=== PATIENT | male | born 1930 | race Caucasian/White ===

== ENCOUNTER 2017-10-17 09:06 | Emergency (ER) | payer MEDICARE ==
[~2017-10-17] VITALS: Ht 180.3 cm; Wt 80.3 kg
[~2017-10-17 09:06] MED LIST: AMI25T PO; COR3.125T PO; FINA5TAB11 PO; FLO0.4C PO; INSU100V12 SQ; KEN0.1O TP; LEVO50TA8 PO; LISI-642 PO; NITR0.4T48 SL; ROSU40TA PO; TOBR5DRO57 LEFTEYE
[2017-10-17 09:48] LABS: BASOPHILS % (AUTO) 0.4 % (0-1); EOSINOPHILS # (AUTO) 0.8 X10'3 (0-0.9); EOSINOPHILS % (AUTO) 8.4 % (0-6); HEMATOCRIT 33.4 % (42.0-52.0); HEMOGLOBIN 11.2 g/dl (14.0-17.9); MEAN CORPUSCULAR HEMOGLOBIN 29.3 PG (27.0-31.0); MEAN CORPUSCULAR HGB CONC 33.5 % (33.0-36.5); MEAN CORPUSCULAR VOLUME 87.4 FL (78-98); MEAN PLATELET VOLUME 7.5 FL (7.4-10.4); MONOCYTES # (AUTO) 0.7 X10'3 (0-0.9); MONOCYTES % (AUTO) 7.7 % (2-12); NEUTROPHILS % (AUTO) 73.5 % (42-75); PLATELET COUNT 364 X10'3 (140-440); RED BLOOD COUNT 3.82 X10'6 (4.70-6.10); RED CELL DISTRIBUTION WIDTH 15.9 % (11.5-14.5); WHITE BLOOD COUNT 9.5 X10'3 (4.5-11.0)
[2017-10-17 09:56] LABS: ALBUMIN 3.5 G/DL (3.4-5.0); ANION GAP 9 (8-16); BLOOD UREA NITROGEN 58 MG/DL (7-18); BUN/CREATININE RATIO 19.3 (5.4-32.0); CALCIUM 8.3 MG/DL (8.5-10.1); CHLORIDE 107 MMOL/L (99-107); CREATININE 3.01 MG/DL (0.60-1.10); GLUCOSE 107 MG/DL (70-104); POTASSIUM 5.2 MMOL/L (3.5-5.1); SODIUM 140 MMOL/L (135-145); TOTAL CARBON DIOXIDE 23.9 MMOL/L (24-32); eGFR 20 ML/MIN
[2017-10-17 10:10] LABS: CLARITY,URINE TURBID (Clear); COLOR,URINE BROWN (Yellow); GLUCOSE, URINE NEGATIVE (Neg); KETONES,URINE TRACE mg/dl (Neg); LEUKOCYTE ESTERASE ,URINE SMALL (Neg); NITRITES, URINE POSITIVE (Neg); OCCULT BLOOD,URINE LARGE (Neg); PH,URINE 6.5 (4.8-8.0); PROTEIN,URINE >=300 mg/dl (Neg)
[2017-10-17 10:20] LABS: UA COLLECTION TYPE FOLEY CATH
[2017-10-17 10:24] LABS: AMORPHOUS URATES 1+; BACTERIA,URINE 1+ /HPF (Neg); COARSE GRANULAR CAST 0-3 /LPF (NEGATIVE); HYALINE CASTS 0-3 /LPF (NEGATIVE); MUCUS STRANDS FEW /LPF (Neg); RBC,URINE TNTC /HPF (0-2); SQUAMOUS EPITHELIAL CELL,UR FEW /LPF (FEW); WBC,URINE 20-30 /HPF (0-4)
[2017-10-17] MEDS ORDERED: DOXY100C43 PO (10:59)
[2017-10-17 11:07] VITALS: BP 148/83
== END 2017-10-17 11:14 | disposition home or self-care (01) ==
LOC: ER 09:07
DX: N39.0 Urinary tract infection, site not specified (principal); R33.9 Retention of urine, unspecified; N18.4 Chronic kidney disease, stage 4 (severe); I25.10 Atherosclerotic heart disease of native coronary artery without angina pectoris; E11.22 Type 2 diabetes mellitus with diabetic chronic kidney disease; I25.2 Old myocardial infarction; Z79.4 Long term (current) use of insulin; Z79.899 Other long term (current) drug therapy
CPT/HCPCS: 36415; 51702; 80048; 81001; 85025; 87088; 99285; A4315

== ENCOUNTER 2018-01-08 09:37 | Inpatient (IN) | payer MEDICARE ==
[~2018-01-08] VITALS: Ht 175.3 cm; Wt 84.0 kg
[2018-01-08 10:10] LABS: BASOPHILS % (AUTO) 0 % (0-1); EOSINOPHILS # (AUTO) 0.2 X10'3 (0-0.9); EOSINOPHILS % (AUTO) 1.7 % (0-6); HEMATOCRIT 35.1 % (42.0-52.0); HEMOGLOBIN 11.5 g/dl (14.0-17.9); LYMPHOCYTES # (AUTO) 0.2 X10'3 (1.1-4.8); LYMPHOCYTES % (AUTO) 1.5 % (21-51); MEAN CORPUSCULAR HEMOGLOBIN 28.3 PG (27.0-31.0); MEAN CORPUSCULAR HGB CONC 32.6 % (33.0-36.5); MEAN CORPUSCULAR VOLUME 86.6 FL (78-98); MEAN PLATELET VOLUME 7.4 FL (7.4-10.4); MONOCYTES # (AUTO) 0.3 X10'3 (0-0.9); MONOCYTES % (AUTO) 2.3 % (2-12); NEUTROPHILS # (AUTO) 10.8 X10'3 (1.8-7.7); NEUTROPHILS % (AUTO) 94.5 % (42-75); PLATELET COUNT 390 X10'3 (140-440); RED BLOOD COUNT 4.06 X10'6 (4.70-6.10); WHITE BLOOD COUNT 11.4 X10'3 (4.5-11.0)
[2018-01-08 10:21] LABS: ANISOCYTOSIS 1+; PLATELET ESTIMATE NORMAL; TOTAL CELLS COUNTED 100
[2018-01-08 10:25] LABS: ALANINE AMINOTRANSFERASE 21 U/L (12-78); ALBUMIN 3.3 G/DL (3.4-5.0); ALBUMIN/GLOBULIN RATIO 0.7 (1.1-1.5); ALKALINE PHOSPHATASE 56 IU/L (46-116); ANION GAP 12 (8-16); ASPARTATE AMINO TRANSFERASE 14 U/L (10-37); BILIRUBIN,TOTAL 0.4 MG/DL (0.1-1.0); BLOOD UREA NITROGEN 76 MG/DL (7-18); BUN/CREATININE RATIO 23.3 (5.4-32.0); CALCIUM 8.2 MG/DL (8.5-10.1); CHLORIDE 105 MMOL/L (99-107); CREATININE 3.26 MG/DL (0.60-1.10); GLUCOSE 126 MG/DL (70-104); SODIUM 136 MMOL/L (135-145); TOTAL CARBON DIOXIDE 19.5 MMOL/L (24-32); TOTAL PROTEIN 7.8 G/DL (6.4-8.2); eGFR 18 ML/MIN
[2018-01-08] MEDS ORDERED: normal saline 1000ML IV soln IVB ONE (10:50)
[2018-01-08 11:13] LABS: CLARITY,URINE CLOUDY (Clear); COLOR,URINE BROWN (Yellow); PH,URINE 6.5 (4.8-8.0)
[2018-01-08 11:21] LABS: UA COLLECTION TYPE FOLEY CATH
[2018-01-08 11:23] LABS: BACTERIA,URINE FEW /HPF (Neg); MUCUS STRANDS NONE SEEN /LPF (Neg); RBC,URINE TNTC /HPF (0-2); SQUAMOUS EPITHELIAL CELL,UR FEW /LPF (FEW)
[2018-01-08] MEDS ORDERED: CefTRIAXone 2gm/D5W 50ml 50 ML IV ONE (11:50)
[2018-01-08] MEDS ORDERED: normal saline 1000ML IV soln IV ONE (11:50)
[2018-01-08] MEDS ORDERED: GABA-530 PO (12:21)
[2018-01-08] MEDS ORDERED: CLOP75TA35 PO (12:21)
[2018-01-08] MEDS ORDERED: ALLO100T15 (12:21)
[2018-01-08] MEDS ORDERED: AMPI500C65 PO (12:21)
[2018-01-08] MEDS ORDERED: ondansetron/PF 4mg/2ml inj IV PRN (13:10)
[2018-01-08] MEDS ORDERED: mag hydrox/Alum hydrox/simeth 30ml oral suspension PO PRN (13:10)
[2018-01-08] MEDS ORDERED: magnesium hydroxide 30ml (MOM) UD suspension PO PRN (13:10)
[2018-01-08] MEDS: normal saline 1000ml 1,000 ML IV SCH ×2 (13:10→18:29)
[2018-01-08] MEDS ORDERED: magnesium 4gm in 100ml NS 100 ML IV PRN (13:10)
[2018-01-08] MEDS ORDERED: magnesium Cl slow-release 64mg tablet PO PRN (13:10)
[2018-01-08] MEDS ORDERED: potassium Cl 40MEQ/NS 500ml 500 ML IV PRN ×2 (13:10)
[2018-01-08] MEDS ORDERED: magnesium 1gm/100ml D5W IVPB 100 ML IV PRN (13:10)
[2018-01-08] MEDS ORDERED: potassium Cl 20 mEq SR tablet PO PRN ×2 (13:10)
[2018-01-08] MEDS ORDERED: acetaminophen 325mg tablet PO PRN ×2 (13:10)
[2018-01-08] MEDS ORDERED: HYDROcodone/acetaminophen 5mg/325mg tablet PO PRN ×2 (13:10→17:45)
[2018-01-08 13:30] VITALS: BP 116/45
[2018-01-08] MEDS ORDERED: glucagon, human recombinant 1mg kit SUBCUT PRN (16:45)
[2018-01-08] MEDS ORDERED: MESSAGE TO PHARMACY PO ONE (16:45)
[2018-01-08] MEDS ORDERED: dextrose ORAL solution 15 GM/59 ML bottle PO PRN ×2 (16:45)
[2018-01-08] MEDS ORDERED: dextrose 50%-water 50ml dispensing syringe IV PRN ×2 (16:45)
[2018-01-08 17:48] LABS: INR 1.1 INR; PARTIAL THROMBOPLASTIN TIME 36 SECONDS (22-32); PROTHROMBIN TIME 11.4 SECONDS (9.0-12.0)
[2018-01-08 18:30] VITALS: BP 120/45
[2018-01-08] MEDS: heparin, porcine 5000 units/ml vial SQ SCH (20:11)
[2018-01-08] MEDS: carVEDilol 3.125mg tablet PO SCH (20:11)
[2018-01-08] MEDS: Melatonin 3mg tablet PO SCH (20:11)
[2018-01-08] MEDS: gabapentin 100mg capsule PO SCH (20:11)
[2018-01-08] MEDS: nystatin 15 GM powder TP SCH (20:12)
[2018-01-08] MEDS ORDERED: temazepam 15mg capsule PO PRN (21:00)
[2018-01-08] MEDS ORDERED: insulin glargine (Lantus) pen - multi-dose SQ SCH (21:00)
[2018-01-08] MEDS: insulin glargine (Lantus) pen - multi-dose SQ SCH (21:00)
[2018-01-09] VITALS (9 sets, daily range): BP systolic 93–127; BP diastolic 45–85
[2018-01-09] MEDS: normal saline 1000ml 1,000 ML IV SCH ×2 (05:01→15:02)
[2018-01-09 05:32] LABS: ALANINE AMINOTRANSFERASE 9 U/L (12-78); ALBUMIN 2.2 G/DL (3.4-5.0); ALBUMIN/GLOBULIN RATIO 0.6 (1.1-1.5); ALKALINE PHOSPHATASE 47 IU/L (46-116); ANION GAP 10 (8-16); ASPARTATE AMINO TRANSFERASE 10 U/L (10-37); BILIRUBIN,TOTAL 0.2 MG/DL (0.1-1.0); BLOOD UREA NITROGEN 76 MG/DL (7-18); BUN/CREATININE RATIO 23.6 (5.4-32.0); CALCIUM 7.3 MG/DL (8.5-10.1); CHLORIDE 110 MMOL/L (99-107); CREATININE 3.22 MG/DL (0.60-1.10); GLUCOSE 92 MG/DL (70-104); MAGNESIUM 1.5 MG/DL (1.5-2.4); SODIUM 137 MMOL/L (135-145); TOTAL CARBON DIOXIDE 16.9 MMOL/L (24-32); TOTAL PROTEIN 5.7 G/DL (6.4-8.2); eGFR 18 ML/MIN
[2018-01-09 05:55] LABS: BASOPHILS % (AUTO) 0.4 % (0-1); EOSINOPHILS # (AUTO) 0.3 X10'3 (0-0.9); EOSINOPHILS % (AUTO) 4.4 % (0-6); HEMATOCRIT 24.7 % (42.0-52.0); HEMOGLOBIN 8.1 g/dl (14.0-17.9); LYMPHOCYTES # (AUTO) 0.3 X10'3 (1.1-4.8); LYMPHOCYTES % (AUTO) 4.6 % (21-51); MEAN CORPUSCULAR HEMOGLOBIN 28.7 PG (27.0-31.0); MEAN CORPUSCULAR HGB CONC 32.9 % (33.0-36.5); MEAN CORPUSCULAR VOLUME 87.2 FL (78-98); MEAN PLATELET VOLUME 8.1 FL (7.4-10.4); MONOCYTES # (AUTO) 0.4 X10'3 (0-0.9); MONOCYTES % (AUTO) 5.7 % (2-12); NEUTROPHILS # (AUTO) 5.7 X10'3 (1.8-7.7); NEUTROPHILS % (AUTO) 84.9 % (42-75); PLATELET COUNT 263 X10'3 (140-440); RED BLOOD COUNT 2.83 X10'6 (4.70-6.10); RED CELL DISTRIBUTION WIDTH 17.3 % (11.5-14.5); WHITE BLOOD COUNT 6.7 X10'3 (4.5-11.0)
[2018-01-09] MEDS: heparin, porcine 5000 units/ml vial SQ SCH (08:00)
[2018-01-09] MEDS: lisinopril 5mg tablet PO SCH (08:00)
[2018-01-09] MEDS: K and/or MAG REPLACEMENT MC SCH (08:00)
[2018-01-09] MEDS: carVEDilol 3.125mg tablet PO SCH ×2 (08:00→19:26)
[2018-01-09] MEDS: CefTRIAXone/D5W-Rocephin 1gm 50 ML IV SCH (08:46)
[2018-01-09] MEDS: atorvastatin 20mg tablet PO SCH (08:47)
[2018-01-09] MEDS: tamsulosin 0.4mg capsule PO SCH (08:47)
[2018-01-09] MEDS: clopidogrel 75mg tablet PO SCH (08:47)
[2018-01-09] MEDS: finasteride 5mg tablet PO SCH (08:48)
[2018-01-09] MEDS: nystatin 15 GM powder TP SCH ×3 (08:48→20:55)
[2018-01-09] MEDS ORDERED: nitroGLYCERIN 0.4mg SUBLingual tab SL ONE (11:42)
[2018-01-09] MEDS: nitroGLYCERIN 0.4mg SUBLingual tab SL PRN ×2 (11:52→12:23)
[2018-01-09] MEDS: nitroGLYCERIN 0.4mg/hour patch TD SCH (14:17)
[2018-01-09] MEDS: Melatonin 3mg tablet PO SCH (20:54)
[2018-01-09] MEDS: gabapentin 100mg capsule PO SCH (20:55)
[2018-01-09] MEDS: HYDROcodone/acetaminophen 10/325mg tab PO PRN (20:55)
[2018-01-09] MEDS: insulin glargine (Lantus) pen - multi-dose SQ SCH (21:00)
[2018-01-10] VITALS: BP 111/56
[2018-01-10 01:30] VITALS: BP 120/60
[2018-01-10 04:57] LABS: BASOPHILS % (AUTO) 0.4 % (0-1); EOSINOPHILS # (AUTO) 0.6 X10'3 (0-0.9); EOSINOPHILS % (AUTO) 8.8 % (0-6); HEMATOCRIT 32.6 % (42.0-52.0); HEMOGLOBIN 10.9 g/dl (14.0-17.9); LYMPHOCYTES # (AUTO) 0.6 X10'3 (1.1-4.8); LYMPHOCYTES % (AUTO) 7.8 % (21-51); MEAN CORPUSCULAR HEMOGLOBIN 29.2 PG (27.0-31.0); MEAN CORPUSCULAR HGB CONC 33.3 % (33.0-36.5); MEAN CORPUSCULAR VOLUME 87.8 FL (78-98); MEAN PLATELET VOLUME 7.9 FL (7.4-10.4); MONOCYTES # (AUTO) 0.5 X10'3 (0-0.9); MONOCYTES % (AUTO) 6.6 % (2-12); NEUTROPHILS # (AUTO) 5.5 X10'3 (1.8-7.7); NEUTROPHILS % (AUTO) 76.4 % (42-75); PLATELET COUNT 302 X10'3 (140-440); RED BLOOD COUNT 3.71 X10'6 (4.70-6.10); RED CELL DISTRIBUTION WIDTH 17.4 % (11.5-14.5); WHITE BLOOD COUNT 7.2 X10'3 (4.5-11.0)
[2018-01-10] MEDS: normal saline 1000ml 1,000 ML IV SCH ×2 (05:16→17:02)
[2018-01-10 05:19] LABS: ALANINE AMINOTRANSFERASE 9 U/L (12-78); ALBUMIN 2.3 G/DL (3.4-5.0); ALBUMIN/GLOBULIN RATIO 0.6 (1.1-1.5); ALKALINE PHOSPHATASE 44 IU/L (46-116); ANION GAP 11 (8-16); ASPARTATE AMINO TRANSFERASE 26 U/L (10-37); BILIRUBIN,TOTAL 0.2 MG/DL (0.1-1.0); BLOOD UREA NITROGEN 67 MG/DL (7-18); BUN/CREATININE RATIO 21.6 (5.4-32.0); CALCIUM 7.4 MG/DL (8.5-10.1); CHLORIDE 111 MMOL/L (99-107); GLUCOSE 126 MG/DL (70-104); MAGNESIUM 1.6 MG/DL (1.5-2.4); POTASSIUM 5.5 MMOL/L (3.5-5.1); SODIUM 140 MMOL/L (135-145); TOTAL CARBON DIOXIDE 17.6 MMOL/L (24-32); TOTAL PROTEIN 6.4 G/DL (6.4-8.2); eGFR 19 ML/MIN
[2018-01-10] MEDS: K and/or MAG REPLACEMENT MC SCH (06:51)
[2018-01-10 07:00] VITALS: BP 135/61
[2018-01-10] MEDS: CefTRIAXone/D5W-Rocephin 1gm 50 ML IV SCH (07:29)
[2018-01-10] MEDS: tamsulosin 0.4mg capsule PO SCH (07:30)
[2018-01-10] MEDS: finasteride 5mg tablet PO SCH (07:30)
[2018-01-10] MEDS: carVEDilol 3.125mg tablet PO SCH ×2 (07:30→20:05)
[2018-01-10] MEDS: clopidogrel 75mg tablet PO SCH (07:30)
[2018-01-10] MEDS: atorvastatin 20mg tablet PO SCH (07:30)
[2018-01-10] MEDS: nitroGLYCERIN 0.4mg/hour patch TD SCH (07:30)
[2018-01-10] MEDS: HYDROcodone/acetaminophen 10/325mg tab PO PRN (07:30)
[2018-01-10] MEDS: lisinopril 5mg tablet PO SCH (07:30)
[2018-01-10] MEDS: nystatin 15 GM powder TP SCH ×3 (07:30→21:58)
[2018-01-10 10:49] VITALS: BP 136/62
[2018-01-10] MEDS ORDERED: sodium polystyrene sulfonate 15gm/60ml oral suspension PO ONE (16:10)
[2018-01-10] MEDS ORDERED: sodium bicarbonate (8.4%) 1 mEq/ml syringe IV ONE (16:10)
[2018-01-10] MEDS: sodium bicarbonate (8.4%) inj. 50 MEQ in sodium chloride 0.45% 1,000 ML IV SCH (18:59)
[2018-01-10] MEDS: insulin Lispro (HumaLOG) vial - multi-dose SQ SCH (19:02)
[2018-01-10 19:52] VITALS: BP 112/57
[2018-01-10] MEDS: lactobacillus rhamnosus 10,000 MMU CELLS/CAPSULE PO SCH (20:05)
[2018-01-10] MEDS: Melatonin 3mg tablet PO SCH (21:56)
[2018-01-10] MEDS: gabapentin 100mg capsule PO SCH (21:56)
[2018-01-10] MEDS: insulin glargine (Lantus) pen - multi-dose SQ SCH (22:46)
[2018-01-10 23:30] VITALS: BP 119/65
[2018-01-11] MEDS: HYDROcodone/acetaminophen 10/325mg tab PO PRN ×2 (00:31→15:07)
[2018-01-11] MEDS: normal saline 1000ml 1,000 ML IV SCH ×2 (01:10→05:26)
[2018-01-11] MEDS ORDERED: ipratropium/albuterol 3ml nebule NEB PRN (02:10)
[2018-01-11] MEDS: sodium bicarbonate (8.4%) inj. 50 MEQ in sodium chloride 0.45% 1,000 ML IV SCH (03:50)
[2018-01-11] MEDS: nitroGLYCERIN 0.4mg SUBLingual tab SL PRN ×2 (04:01→15:07)
[2018-01-11 04:04] VITALS: BP 140/64
[2018-01-11 04:15] VITALS: BP 119/57
[2018-01-11 04:18] LABS: BASOPHILS % (AUTO) 0.2 % (0-1); EOSINOPHILS % (AUTO) 0 % (0-6); HEMATOCRIT 36.1 % (42.0-52.0); HEMOGLOBIN 11.7 g/dl (14.0-17.9); LYMPHOCYTES # (AUTO) 0.6 X10'3 (1.1-4.8); LYMPHOCYTES % (AUTO) 4.7 % (21-51); MEAN CORPUSCULAR HEMOGLOBIN 28.7 PG (27.0-31.0); MEAN CORPUSCULAR HGB CONC 32.5 % (33.0-36.5); MEAN CORPUSCULAR VOLUME 88.4 FL (78-98); MEAN PLATELET VOLUME 7.8 FL (7.4-10.4); MONOCYTES # (AUTO) 0.8 X10'3 (0-0.9); MONOCYTES % (AUTO) 5.9 % (2-12); NEUTROPHILS # (AUTO) 11.8 X10'3 (1.8-7.7); NEUTROPHILS % (AUTO) 89.2 % (42-75); PLATELET COUNT 389 X10'3 (140-440); RED BLOOD COUNT 4.08 X10'6 (4.70-6.10); RED CELL DISTRIBUTION WIDTH 17.7 % (11.5-14.5); WHITE BLOOD COUNT 13.3 X10'3 (4.5-11.0)
[2018-01-11 04:39] LABS: ALANINE AMINOTRANSFERASE 20 U/L (12-78); ALBUMIN 2.7 G/DL (3.4-5.0); ALBUMIN/GLOBULIN RATIO 0.6 (1.1-1.5); ALKALINE PHOSPHATASE 70 IU/L (46-116); ANION GAP 12 (8-16); ASPARTATE AMINO TRANSFERASE 22 U/L (10-37); BILIRUBIN,TOTAL 0.3 MG/DL (0.1-1.0); BLOOD UREA NITROGEN 62 MG/DL (7-18); BUN/CREATININE RATIO 20.4 (5.4-32.0); CALCIUM 7.8 MG/DL (8.5-10.1); CHLORIDE 108 MMOL/L (99-107); CREATININE 3.04 MG/DL (0.60-1.10); GLUCOSE 233 MG/DL (70-104); MAGNESIUM 1.9 MG/DL (1.5-2.4); POTASSIUM 5.9 MMOL/L (3.5-5.1); SODIUM 138 MMOL/L (135-145); TOTAL CARBON DIOXIDE 17.6 MMOL/L (24-32); TOTAL PROTEIN 7.4 G/DL (6.4-8.2); eGFR 20 ML/MIN
[2018-01-11] MEDS ORDERED: furosemide 40mg/4ml inj IV ONE (05:10)
[2018-01-11 05:27] VITALS: BP 125/67
[2018-01-11 07:00] VITALS: BP 126/62
[2018-01-11] MEDS: ipratropium/albuterol 3ml nebule NEB SCH ×5 (07:48→23:30)
[2018-01-11] MEDS: K and/or MAG REPLACEMENT MC SCH (08:00)
[2018-01-11] MEDS ORDERED: dextrose 50%-water 50ml dispensing syringe IV STA (08:34)
[2018-01-11] MEDS ORDERED: furosemide 40mg/4ml inj IV STA (08:34)
[2018-01-11] MEDS ORDERED: sodium bicarbonate (8.4%) 1 mEq/ml syringe IV STA (08:34)
[2018-01-11] MEDS ORDERED: albuterol 2.5 MG/3 ML nebule NEB STA (08:34)
[2018-01-11] MEDS ORDERED: insulin regular, human 10 units/0.1 ml syringe IV STA (08:34)
[2018-01-11] MEDS ORDERED: sodium polystyrene sulfonate 15gm/60ml oral suspension PO STA (08:34)
[2018-01-11] MEDS ORDERED: sodium bicarbonate (8.4%) inj. 50 MEQ in dextrose 5%-water 250 ML IV ONE ×2 (09:05→13:20)
[2018-01-11] MEDS: nystatin 15 GM powder TP SCH ×3 (09:14→19:32)
[2018-01-11] MEDS: nitroGLYCERIN 0.4mg/hour patch TD SCH (09:16)
[2018-01-11] MEDS: carVEDilol 3.125mg tablet PO SCH ×2 (09:16→19:33)
[2018-01-11] MEDS: atorvastatin 20mg tablet PO SCH (09:17)
[2018-01-11] MEDS: tamsulosin 0.4mg capsule PO SCH (09:17)
[2018-01-11] MEDS: lactobacillus rhamnosus 10,000 MMU CELLS/CAPSULE PO SCH ×2 (09:17→19:39)
[2018-01-11] MEDS: finasteride 5mg tablet PO SCH (09:17)
[2018-01-11] MEDS ORDERED: SODIUM BICARBONATE IV ONE (09:30)
[2018-01-11] MEDS ORDERED: NORMAL SALINE IV ONE (09:30)
[2018-01-11 11:00] VITALS: BP 125/64
[2018-01-11] MEDS: insulin Lispro (HumaLOG) vial - multi-dose SQ SCH ×2 (12:54→19:33)
[2018-01-11] MEDS ORDERED: sodium bicarbonate (8.4%) 1 mEq/ml syringe IV ONE (13:15)
[2018-01-11] MEDS ORDERED: insulin regular, human 10 units/0.1 ml syringe IV ONE (13:15)
[2018-01-11] MEDS ORDERED: dextrose 50%-water 50ml dispensing syringe IV ONE (13:15)
[2018-01-11] MEDS ORDERED: acetaminophen 325mg tablet PO PRN (18:05)
[2018-01-11] MEDS: docusate sod 100mg capsule PO SCH (19:33)
[2018-01-11 19:40] VITALS: BP 126/70
[2018-01-11] MEDS: insulin glargine (Lantus) pen - multi-dose SQ SCH (22:22)
[2018-01-11] MEDS: gabapentin 100mg capsule PO SCH (22:23)
[2018-01-11] MEDS: Melatonin 3mg tablet PO SCH (22:23)
[2018-01-11] MEDS: LORazepam 2 mg/ml vial IV PRN (22:25)
[2018-01-12] MEDS: LORazepam 2 mg/ml vial IV PRN ×3 (02:20→20:48)
[2018-01-12] MEDS: morphine 10mg/0.5ml (conc. morphine) oral syringe PO PRN ×3 (04:56→13:37)
[2018-01-12 07:00] VITALS: BP 124/68
[2018-01-12] MEDS: ipratropium/albuterol 3ml nebule NEB SCH ×2 (07:00→11:00)
[2018-01-12] MEDS: tamsulosin 0.4mg capsule PO SCH (08:00)
[2018-01-12] MEDS: finasteride 5mg tablet PO SCH (08:00)
[2018-01-12] MEDS: docusate sod 100mg capsule PO SCH (08:00)
[2018-01-12] MEDS: nitroGLYCERIN 0.4mg/hour patch TD SCH (08:00)
[2018-01-12] MEDS: K and/or MAG REPLACEMENT MC SCH (08:00)
[2018-01-12] MEDS: atorvastatin 20mg tablet PO SCH (08:00)
[2018-01-12] MEDS: carVEDilol 3.125mg tablet PO SCH (08:00)
[2018-01-12] MEDS: lactobacillus rhamnosus 10,000 MMU CELLS/CAPSULE PO SCH (08:00)
[2018-01-12] MEDS: nystatin 15 GM powder TP SCH ×2 (08:30→13:00)
[2018-01-12] MEDS ORDERED: ipratropium/albuterol 3ml nebule NEB PRN (12:10)
[2018-01-12] MEDS: normal saline 1000ml 1,000 ML IV SCH (13:08)
[2018-01-12] MEDS ORDERED: LORazepam 2 mg/ml vial IV PRN (14:40)
[2018-01-12] MEDS ORDERED: morphine 10mg/0.5ml (conc. morphine) oral syringe PO PRN (14:40)
[2018-01-12] MEDS: morphine 2 MG/ML inj. syringe IV PRN ×3 (15:37→22:11)
[2018-01-13] MEDS: morphine 2 MG/ML inj. syringe IV PRN ×7 (02:26→22:08)
[2018-01-13 06:57] VITALS: BP 126/62
[2018-01-13] MEDS: nitroGLYCERIN 0.4mg/hour patch TD SCH (08:00)
[2018-01-13] MEDS: LORazepam 2 mg/ml vial IV PRN (18:50)
[2018-01-14] MEDS: morphine 2 MG/ML inj. syringe IV PRN ×2 (00:33→02:46)
[2018-01-14] MEDS: LORazepam 2 mg/ml vial IV PRN (02:05)
== END 2018-01-14 08:47 | disposition expired | DRG 872 ==
LOC: ER 09:37 → ED HOLD 13:10 → EDBEDREQ 13:55 → SUR 3N 14:33
PROVIDERS: ADMIT Family Medicine; ATTEND Internal Medicine
PROC: 30233N1 Transfusion of Nonautologous Red Blood Cells into Peripheral Vein, Percutaneous Approach (ICD-10-PCS; principal; 2018-01-09)
DX: A41.9 Sepsis, unspecified organism (principal); N39.0 Urinary tract infection, site not specified; N17.9 Acute kidney failure, unspecified; C64.1 Malignant neoplasm of right kidney, except renal pelvis; N18.4 Chronic kidney disease, stage 4 (severe); B02.21 Postherpetic geniculate ganglionitis; D62 Acute posthemorrhagic anemia; N13.30 Unspecified hydronephrosis; I25.10 Atherosclerotic heart disease of native coronary artery without angina pectoris; N40.1 Benign prostatic hyperplasia with lower urinary tract symptoms; J44.9 Chronic obstructive pulmonary disease, unspecified; E11.40 Type 2 diabetes mellitus with diabetic neuropathy, unspecified; E11.22 Type 2 diabetes mellitus with diabetic chronic kidney disease; H91.90 Unspecified hearing loss, unspecified ear; E78.5 Hyperlipidemia, unspecified; E87.5 Hyperkalemia; F03.90 Unspecified dementia, unspecified severity, without behavioral disturbance, psychotic disturbance, mood disturbance, and anxiety; R33.9 Retention of urine, unspecified; N28.1 Cyst of kidney, acquired; H35.30 Unspecified macular degeneration; I48.0 Paroxysmal atrial fibrillation; R31.0 Gross hematuria; I12.9 Hypertensive chronic kidney disease with stage 1 through stage 4 chronic kidney disease, or unspecified chronic kidney disease; E11.51 Type 2 diabetes mellitus with diabetic peripheral angiopathy without gangrene; Z51.5 Encounter for palliative care; Z66 Do not resuscitate; Z95.5 Presence of coronary angioplasty implant and graft; Z95.1 Presence of aortocoronary bypass graft; Z79.4 Long term (current) use of insulin; Z79.02 Long term (current) use of antithrombotics/antiplatelets; I25.2 Old myocardial infarction; Z86.73 Personal history of transient ischemic attack (TIA), and cerebral infarction without residual deficits
CPT/HCPCS: 36415; 71045; 74176; 80053; 81001; 82948; 83036; 83605; 83735; 84132; 84145; 85025; 85610; 85730; 86885; 86900; 86901; 86920; 87040; 87088; 93005; 94640; 94760; 96361; 96365; 97110; 97116; 97161; 99285; A4315; A6212; A6213; J0696; J1644; J1815; J1940; J2060; J2270; J2405; J7030; P9016